=== PATIENT | female | born 1985 | race Two or more races ===

== ENCOUNTER 2022-02-21 23:48 | Inpatient (IN) | payer BC ==
[2022-02-22 01:50] VITALS: BMI 37.0
[2022-02-22 03:36] LABS: Mean Corpuscular HGB CONC 34.9 g/dL (32.0-36.0); Mean Corpuscular Hemoglobin 27.7 pg (27.0-33.0); Mean Corpuscular Volume 79.4 fl (81.6-98.3); Mean Platelet Volume 11.8 fl (7.4-10.4); Platelet Count 170 10x3/uL (150-450); RBC Distribution Width 14.2 % (11.5-14.5); Red Blood Cell (RBC) Count 5.05 10x6/uL (3.90-5.03); White Blood Cell (WBC) Count 15.1 10x3/uL (3.5-10.5)
[2022-02-22 04:11] LABS: Hep B Surf Ag Non-Reactive S/CO (NonReactive)
[2022-02-22 04:13] LABS: Syphilis Antibody Nonreactive (Nonreactive); Syphilis Antibody Index 0.04 S/CO (<1.00 Non-Reactive)
[2022-02-22 04:14] LABS: HBSAg Index 0.17 S/CO (0-0.99)
[2022-02-22] MEDS ORDERED: Penicillin G Potassium 5 MILL.UNITS VIAL ONE (05:13)
[2022-02-22] MEDS ORDERED: hydrALAZINE 20 MG/ML VIAL SLOW IVP PRN (06:54)
[2022-02-22] MEDS ORDERED: HYDROcodone/Acetaminophen 5/325 mg Tablet PO PRN ×2 (06:54)
[2022-02-22] MEDS ORDERED: Misoprostol 200 MCG TAB PR PRN (06:54)
[2022-02-22] MEDS ORDERED: Promethazine HCl 25 MG/ML VIAL IM PRN ×2 (06:54→17:30)
[2022-02-22] MEDS ORDERED: Ibuprofen 800 MG TAB PO PRN (06:54)
[2022-02-22] MEDS ORDERED: Lidocaine 1% (PF) 30 ML VIAL SC PRN ×2 (06:54→06:58)
[2022-02-22] MEDS ORDERED: Ondansetron PF 4 MG/2 ML Vial IVP PRN ×2 (06:54→17:30)
[2022-02-22] MEDS ORDERED: NS w/ Oxytocin 30 units 500 ML IV SCH ×3 (07:00→09:45)
[2022-02-22] MEDS ORDERED: Butorphanol Tartrate 1 MG/ML VIAL ONE (07:32)
[2022-02-22] MEDS ORDERED: Penicillin G Potassium 5 MILL.UNITS in Sodium Chloride 0.9% 100 ML IVPB SCH (08:00)
[2022-02-22] MEDS: Penicillin G 2.5 MILL.units 2.5 MILL.UNITS in Premix Bag 1 BAG IVPB SCH ×4 (09:36→22:15)
[2022-02-22 09:49] LABS: SARS-CoV-2 NAA Rapid Test Not Detected (NotDetected)
[2022-02-22] MEDS: Butorphanol Tartrate 1 MG/ML VIAL SLOW IVP PRN ×2 (12:00→14:49)
[2022-02-22] MEDS ORDERED: Fentanyl 2 mcg/Bup 0.1% Cadd 100 ML ONE (16:46)
[2022-02-22] MEDS ORDERED: Fentanyl 2 mcg/Bupivacaine 0.1% Cassette 100 ML EPIDURAL SCH (17:30)
[2022-02-22] MEDS ORDERED: Hydrocerin (Eucerin) Cream 120 gm Jar TOP PRN (17:30)
[2022-02-22] MEDS ORDERED: Communication Order-Pharmacy FS SCH (17:30)
[2022-02-22] MEDS ORDERED: diphenhydrAMINE 50 MG/ML VIAL IVP PRN (17:30)
[2022-02-22] MEDS ORDERED: Naloxone HCl 0.4 mg/ml Vial IVP PRN ×2 (17:30)
[2022-02-22] MEDS ORDERED: Lactated Ringer's 500 ML IV PRN (17:30)
[2022-02-22] MEDS ORDERED: ePHEDrine Sulfate 50 MG/10 ML VIAL SLOW IVP PRN (17:30)
[2022-02-22] MEDS ORDERED: Acetaminophen 325 MG TAB PO PRN (17:30)
[2022-02-22] MEDS ORDERED: Calcium Carbonate 500 MG ChewTAB PO SCH (21:00)
[2022-02-22] MEDS ORDERED: Calcium Carbonate 500 MG TAB PO SCH (21:00)
[2022-02-23] MEDS: Penicillin G 2.5 MILL.units 2.5 MILL.UNITS in Premix Bag 1 BAG IVPB SCH ×2 (02:31→10:58)
[2022-02-23] MEDS ORDERED: Carboprost 250 MCG/ML AMP ONE (06:03)
[2022-02-23] MEDS ORDERED: Methylergonovine 0.2 MG/ML VIAL ONE (06:04)
[2022-02-23] MEDS ORDERED: Tranexamic Acid 1,000 MG/10 ML VIAL ONE ×2 (06:04→06:48)
[2022-02-23] MEDS ORDERED: Azithromycin 500 MG VIAL ONE (06:04)
[2022-02-23] MEDS ORDERED: ceFAZolin 2 GM/Dextrose 50 ML IVPB ONE (06:07)
[2022-02-23] MEDS ORDERED: Lidocaine 2% MPF 10 ML AMP (For Epidural Use) ONE ×2 (06:31→06:32)
[2022-02-23] MEDS ORDERED: Ondansetron PF 4 MG/2 ML Vial ONE (06:39)
[2022-02-23] MEDS ORDERED: Dexamethasone 4 mg/ml Vial ONE (06:39)
[2022-02-23] MEDS ORDERED: Oxytocin 10 UNITS/ML VIAL ONE (06:45)
[2022-02-23 06:59] LABS: RapidComm Collect By CBN
[2022-02-23 07:01] LABS: RapidComm Collect By CBN; pH (Cord, venous) 7.347 (7.250-7.350)
[2022-02-23] MEDS: Dextrose 5%-Lactated Ringers 1,000 ML IV SCH (07:05)
[2022-02-23] MEDS ORDERED: Morphine PF 10 MG/10 ML VIAL ONE (07:08)
[2022-02-23] MEDS ORDERED: Promethazine HCl 25 MG/ML VIAL ONE (07:14)
[2022-02-23] MEDS ORDERED: Naloxone HCl 0.4 mg/ml Vial IV PRN (07:25)
[2022-02-23] MEDS ORDERED: diphenhydrAMINE 50 MG/ML VIAL IVP PRN (07:25)
[2022-02-23] MEDS ORDERED: Naloxone HCl 0.4 mg/ml Vial IVP PRN ×2 (07:25)
[2022-02-23] MEDS ORDERED: Meperidine HCl/PF 25 MG/ML VIAL SLOW IVP PRN (07:25)
[2022-02-23] MEDS ORDERED: Fentanyl 100 MCG/2 ML VIAL SLOW IVP PRN (07:25)
[2022-02-23] MEDS ORDERED: Hydrocerin (Eucerin) Cream 120 gm Jar TOP PRN (07:25)
[2022-02-23] MEDS ORDERED: Promethazine HCl 25 MG SUPP PR PRN (07:25)
[2022-02-23] MEDS ORDERED: Ondansetron PF 4 MG/2 ML Vial IVP PRN ×2 (07:25→08:45)
[2022-02-23] MEDS ORDERED: Ondansetron HCl/PF 4 MG/2 ML Vial IVP PRN (07:25)
[2022-02-23] MEDS ORDERED: Promethazine HCl 25 MG/ML VIAL IM PRN (07:25)
[2022-02-23] MEDS ORDERED: Ketorolac Tromethamine 30 MG/ML VIAL IVP SCH (07:30)
[2022-02-23] MEDS ORDERED: Communication Order-Pharmacy FS SCH (07:30)
[2022-02-23] MEDS ORDERED: Lanolin Ointment 7 GM TUBE TOP PRN (08:45)
[2022-02-23] MEDS ORDERED: NS w/ Oxytocin 30 units 500 ML IV SCH (08:45)
[2022-02-23] MEDS ORDERED: Misoprostol 200 MCG TAB PR PRN (08:45)
[2022-02-23] MEDS ORDERED: hydrALAZINE 20 MG/ML VIAL SLOW IVP PRN (08:45)
[2022-02-23] MEDS ORDERED: Methylergonovine 0.2 MG/ML VIAL IM PRN (08:45)
[2022-02-23] MEDS ORDERED: Simethicone Chewable 80 MG TAB PO PRN (08:45)
[2022-02-23] MEDS: Lactated Ringer's 1,000 ML IV SCH ×2 (10:56→16:44)
[2022-02-23] MEDS: Docusate 100 MG CAP PO SCH ×2 (10:57→22:04)
[2022-02-23] MEDS: Ferrous Sulfate 325 MG TAB PO SCH ×2 (10:57→22:38)
[2022-02-23] MEDS: Prenatal Vitamin 1 TAB PO SCH (10:57)
[2022-02-23] MEDS: Ketorolac Tromethamine 30 MG/ML VIAL IVP PRN ×2 (11:32→18:04)
[2022-02-23] MEDS ORDERED: ceFAZolin 2 GM/Dextrose 50 ML 2 GM in Premix Bag 1 BAG IVPB SCH (12:00)
[2022-02-23] MEDS: ceFAZolin 2 GM/Dextrose 50 ML 2 GM in Premix Bag 1 BAG IVPB SCH (18:03)
[2022-02-23] MEDS: HYDROcodone/Acetaminophen 5/325 mg Tablet PO PRN (20:16)
[2022-02-24] MEDS: ceFAZolin 2 GM/Dextrose 50 ML 2 GM in Premix Bag 1 BAG IVPB SCH ×2 (00:03→05:58)
[2022-02-24] MEDS ORDERED: ceFAZolin 2 GM/Dextrose 50 ML IVPB ONE (00:19)
[2022-02-24] MEDS: Ketorolac Tromethamine 30 MG/ML VIAL IVP PRN (00:22)
[2022-02-24] MEDS: HYDROcodone/Acetaminophen 5/325 mg Tablet PO PRN ×4 (00:23→20:19)
[2022-02-24] MEDS: Lactated Ringer's 1,000 ML IV SCH ×3 (01:20→17:39)
[2022-02-24 06:04] LABS: Hemoglobin 11.1 g/dL (12.0-15.5); Mean Corpuscular HGB CONC 34.4 g/dL (32.0-36.0); Mean Corpuscular Hemoglobin 28.5 pg (27.0-33.0); Mean Corpuscular Volume 82.8 fl (81.6-98.3); Mean Platelet Volume 11.1 fl (7.4-10.4); Platelet Count 155 10x3/uL (150-450); RBC Distribution Width 14.3 % (11.5-14.5); White Blood Cell (WBC) Count 19.7 10x3/uL (3.5-10.5)
[2022-02-24] MEDS: Prenatal Vitamin 1 TAB PO SCH (08:27)
[2022-02-24] MEDS: Docusate 100 MG CAP PO SCH ×2 (08:27→20:18)
[2022-02-24] MEDS: Ferrous Sulfate 325 MG TAB PO SCH (08:28)
[2022-02-24] MEDS: Ibuprofen 800 MG TAB PO SCH (20:18)
[2022-02-25] MEDS: HYDROcodone/Acetaminophen 5/325 mg Tablet PO PRN ×3 (00:49→18:47)
[2022-02-25] MEDS: Ferrous Sulfate 325 MG TAB PO SCH ×3 (00:58→11:55)
[2022-02-25] MEDS: Lactated Ringer's 1,000 ML IV SCH ×2 (05:48→07:52)
[2022-02-25] MEDS: Ibuprofen 800 MG TAB PO SCH ×2 (05:50→14:08)
[2022-02-25 07:28] VITALS: TEMP 97.6
[2022-02-25] MEDS: Docusate 100 MG CAP PO SCH (08:46)
[2022-02-25] MEDS: Prenatal Vitamin 1 TAB PO SCH (08:46)
[2022-02-25 22:22] VITALS: BP 123/73
[2022-03-23] MEDS ORDERED: Bupivacaine/Epinephrine 0.25% 30 ML VIAL ONE (06:00)
== END 2022-02-25 20:25 | disposition home or self-care (01) | DRG 788 ==
LOC: CSHLD/OP 23:48 → CSHLD 02-22 01:10 → CSHPP 02-23 10:00
PROVIDERS: ADMIT Student in an Organized Health Care Education/Training Program; ATTEND Student in an Organized Health Care Education/Training Program
PROC: 10D00Z1 Extraction of Products of Conception, Low, Open Approach (ICD-10-PCS; principal; 2022-02-23)
PROC: 3E033VJ Introduction of Other Hormone into Peripheral Vein, Percutaneous Approach (ICD-10-PCS; 2022-02-23)
DX: O42.02 Full-term premature rupture of membranes, onset of labor within 24 hours of rupture (principal); Z3A.39 39 weeks gestation of pregnancy; Z37.0 Single live birth; Z20.822 Contact with and (suspected) exposure to COVID-19; D56.3 Thalassemia minor; O99.02 Anemia complicating childbirth; D64.9 Anemia, unspecified; O99.824 Streptococcus B carrier state complicating childbirth; E03.9 Hypothyroidism, unspecified; O99.284 Endocrine, nutritional and metabolic diseases complicating childbirth; Z79.890 Hormone replacement therapy; O76 Abnormality in fetal heart rate and rhythm complicating labor and delivery; O62.1 Secondary uterine inertia; O69.81X0 Labor and delivery complicated by cord around neck, without compression, not applicable or unspecified; O32.8XX0 Maternal care for other malpresentation of fetus, not applicable or unspecified
CPT/HCPCS: 36415; 82805; 85027; 86780; 86850; 86900; 86901; 87340; J0456; J0595; J0690; J1100; J1200; J1885; J2210; J2274; J2405; J2540; J2550; J2590; U0002